=== PATIENT | female | born 1985 | race Caucasian/White ===

== ENCOUNTER 2020-05-05 17:18 | Emergency (ER) | payer BC, SELFPAY ==
[2020-05-05 17:29] VITALS: BP 136/83; PULSE 104; RESP 16; TEMP 36.8; O2SAT 95; BMI 37.8
[2020-05-05] MEDS: Lidocaine HCl 2 % MPF 5 ML VIAL 10 ML SUBCUT (17:37)
--- NOTE | 2020-05-05 17:46 | PC.NURSE ---
PROVIDER AT BEDSIDE TO CLOSE WOUND WITH SUTURES.
--- NOTE | 2020-05-05 18:03 | ED_ITS ---
HPI - Wound/Laceration General Chief Complaint: Wound/Laceration Stated Complaint: laceration Time Seen by Provider: 05/05/20 17:29 Source: patient Mode of arrival: ambulatory Limitations: no limitations History of Present Illness HPI narrative: 34-year-old female presents with chin laceration after falling. She had a few drinks, lost her balance and landed on her chin. She did not lose consciousness, and has no other complaints at this time. Her last Tdap vaccine was given 5 years ago. Onset (ago): hour(s) (Within the hour of arrival) Location: face ([place]) Place: home Patient tetanus UTD: Yes Context: accidental Associated symptoms: none Treatments prior to arrival: bandage Related Data Allergies Allergy/AdvReac Type Severity Reaction Status Date / Time No Known Allergies Allergy Verified 05/05/20 17:38 [No Known Allergies*] Review of Systems Review of Systems: Constitutional: No Fever, No Chills ENT/Mouth: No Ear Pain, No Hoarseness, No sore throat Eyes: No Eye Pain, No Swelling, No Redness, No Foreign Body Cardiovascular: No Chest Pain, No SOB Respiratory: No Cough, No Dyspnea Gastrointestinal: No Nausea, No Vomiting, No Diarrhea, No abdominal Pain Genitourinary: No Dysuria, No Hematuria Musculoskeletal: No joint pain, No Myalgias, No Joint Swelling Skin: Positive mentum Skin laceration, No rash Neuro: No Weakness, No Numbness, No Paresthesias, No Loss of Consciousness, No Dizziness, No Headache Psych: No Anxiety/Panic, No Depression Heme/Lymph: no easy bruising, no Lymphadenopathy Endocrine: No Polyuria, No Polydipsia Yes all other systems are reviewed and are negative [facility] Past Medical History Attestation statement: The following information was validated with the patient. Medical History (Updated 05/05/20 @ 18:03 by Josiane Miranda NP) No known health problems Social History Social History Alcohol intake: current Smoking Status: Unknown if ever smoked Use of substances other than those prescribed or required for medical reasons: No Physical Exam Vital Signs: Vital Signs: Last Vital Signs Temp 98.3 F 05/05/20 17:29 Pulse 104 H 05/05/20 17:29 Resp 16 05/05/20 17:29 BP 136/83 12/12/20 17:29 Pulse Ox 95 05/05/20 17:29 Body Mass Index 37.8 Appearance: Alert. Oriented X3. No acute distress. Eyes: Pupils equal, round and reactive to light. ENT: Pharynx normal. Neck: Normal inspection. Neck supple. CVS: Normal heart rate and rhythm. Pulses normal. Respiratory: No respiratory distress. Breath sounds normal. Abdomen: Soft and nontender. Skin: 3 cm deep laceration to the mentum, all other Skin warm and dry. Normal skin color. Normal skin turgor. Extremities: No lower extremity edema. Neuro: No motor deficit. No sensory deficit. Course Course Course Narrative: 34-year-old female with laceration to her chin. Plan of care is to suture, laceration is deep will apply 1 internal suture with a buried knot, 6 external sutures. Prepped and draped in sterile fashion, patient tolerated the procedure well. Approximately 30 mL of blood loss. Please refer to Wound procedure note for full details. Plan of care is to discharge home. Patient does understand laceration and wound care. Patient verbalized understanding of and agrees to plan of care. Procedures Laceration Laceration 1: Site: face ([place], [place]) Size (cm): 3 Description: linear Depth: simple, single layer (Involve subcutaneous tissue ) Local Anesthetic: lidocaine 2% Amount of anesthesia used (mL): 7 Pre-repair: wound explored and irrigated extensively Skin layer closed with: nylon Size (cm): 6-0 Number of sutures: 6 Technique: simple, interrupted Subcutaneous layer closed with: chromic gut Size: 5-0 Number of sutures: 1 Technique: simple, interrupted MDM - Wound/Laceration Differential Diagnosis Differential diagnosis: Likely laceration Medical Records Attestation: I reviewed the patient's medical records. Discharge Plan Discharge Clinical Impression: Laceration Patient Disposition: Home, Self-Care Instructions: Laceration (ED), Facial Laceration (ED) Additional Instructions: You were evaluated for laceration to the chin. We placed 1 internal suture and 6 external sutures. Please return in 5-7 days to have sutures removed. Keep the area clean and dry. You may wash the area but do not soak, swim, or immerse the laceration in water for long periods of time. Apply bacitracin twice daily. You may also consider using Mederma which reduces scarring. This can be purchased [id number]. Thank you for choosing this emergency department for evaluation. Please follow-up with primary care physician as needed. Return to the emergency department for any new, concerning, or worsening symptoms.
== END 2020-05-05 18:12 | disposition home or self-care (01) ==
LOC: HO.ED 18:11
PROVIDERS: Emergency Provider Internal Medicine; PCP Nurse Practitioner
DX: S01.81XA Laceration without foreign body of other part of head, initial encounter (principal); W01.198A Fall on same level from slipping, tripping and stumbling with subsequent striking against other object, initial encounter; Y93.9 Activity, unspecified; Y92.9 Unspecified place or not applicable; Y99.9 Unspecified external cause status
CPT/HCPCS: 12013; 99283; 99284